=== PATIENT | male | born 1945 | race American Indian/Alaskan Native ===

== ENCOUNTER 2016-12-15 07:37 | Emergency (ER) | payer MEDICARE ==
[2016-12-15] MEDS ORDERED: KEPPRA 1,000 MG/NS 0.75% 100ML 100 ML IV ONE ×2 (07:46→07:51)
[2016-12-15] MEDS ORDERED: KEPPRA 1,000 MG in D5W 100 ML IV ONE (07:51)
--- NOTE | 2016-12-15 08:38 | Emergency Department Report ---
HPI - General Chief Complaint: Seizure Time Seen by Provider: 12/15/16 08:27 - HPI HPI: Room 19 The patient is a 71-year-old male presenting with a chief complaint of seizure. The patient's felt the patient after having a seizure. The patient is amnestic to the event. The patient states his last seizure before today was approximately 3-4 months ago. The patient admits she may not have been taking his Keppra "correctly." The patient states she may have missed a few doses. Patient currently denies pain. The patient states he feels a little sleepy but that is all. Patient denies headache Location: Central Nervous system Duration: see above Quality: Generalized tonic-clonic Severity:. Moderate Modifying factors: see above Context: see above Mode of transportation: not driving ED Past Medical Hx - Past Medical History Previous Medical History?: Yes Hx Hypertension: Yes (2006) Hx CVA: Yes (slight left sided weakness) Hx Arthritis: Yes (in L knee) Hx Seizures: Yes Additional medical history: [place]. High cholesterol - Surgical History Past Surgical History?: Yes Additional Surgical History: Hernia repair - Family History Family history: no significant - Social History Smoking Status: Never Smoker Substance Use Type: None - Medications Home Medications: Home Medications Medication Instructions Recorded Confirmed Last Taken Type Carvedilol [Coreg] 12.5 mg PO BIDAC 07/18/16 12/15/16 07/23/16 History NIFEdipine [Nifedipine ER] 60 mg PO DAILY 07/18/16 12/15/16 07/23/16 History Simvastatin [Zocor TAB] 20 mg PO QHS 07/18/16 12/15/16 07/23/16 History cloNIDine [Catapres] 0.1 mg PO BID 07/18/16 12/15/16 07/23/16 History hydrALAZINE [Apresoline TAB] 100 mg PO TID 07/18/16 12/15/16 07/23/16 History Dabigatran [Pradaxa] 150 mg PO BID 07/24/16 12/15/16 07/23/16 History levETIRAcetam [Keppra TAB] 500 mg PO BID #60 tablet 12/15/16 Unknown Rx ED Review of Systems ROS: Stated complaint: SEIZURE Other details as noted in HPI Comment: All other systems reviewed and negative Constitutional: denies: chills, fever Eyes: denies: eye pain, eye discharge, vision change ENT: denies: ear pain, throat pain Respiratory: denies: cough, shortness of breath, wheezing Cardiovascular: denies: chest pain, palpitations Endocrine: no symptoms reported Gastrointestinal: denies: abdominal pain, nausea, diarrhea Genitourinary: denies: urgency, dysuria Musculoskeletal: denies: back pain, joint swelling, arthralgia Skin: denies: rash, lesions Neurological: other (seizure) Psychiatric: denies: anxiety, depression Hematological/Lymphatic: denies: easy bleeding, easy bruising Physical Exam - Physical Exam Vital Signs: Vital Signs 12/15/16 12/15/16 12/15/16 07:39 07:40 07:41 Temperature 98.1 F Pulse Rate 104 H 109 H 106 H Respiratory 20 21 14 Rate Blood Pressure 167/117 O2 Sat by Pulse 86 91 98 Oximetry 12/15/16 12/15/16 12/15/16 07:42 07:44 07:45 Temperature Pulse Rate 104 H 111 H 104 H Respiratory 21 16 19 Rate Blood Pressure 167/117 167/117 157/127 O2 Sat by Pulse 99 95 99 Oximetry 12/15/16 12/15/16 12/15/16 07:46 07:48 07:50 Temperature Pulse Rate 108 H 103 H 102 H Respiratory 19 16 23 Rate Blood Pressure 157/127 157/127 157/127 O2 Sat by Pulse 99 98 97 Oximetry 12/15/16 12/15/16 12/15/16 07:52 07:54 08:00 Temperature Pulse Rate 100 H 99 H 94 H Respiratory 20 22 19 Rate Blood Pressure 157/127 157/127 179/116 O2 Sat by Pulse 97 97 97 Oximetry Physical Exam: GENERAL: The patient is well-developed well-nourished male lying on stretcher not appearing to be in acute distress. [] HEENT: Normocephalic. Atraumatic. Extraocular motions are intact. Patient has moist mucous membranes. NECK: Supple. Trachea Midline CHEST/LUNGS: Clear to auscultation. There is no respiratory distress noted. HEART/CARDIOVASCULAR: Regular. There is no tachycardia. There is no gallop rub or murmur. ABDOMEN: Abdomen is soft, nontender. Patient has normal bowel sounds. There is no abdominal distention. SKIN: There is no rash. There is no edema. There is no diaphoresis. NEURO: The patient is awake, alert, and oriented. The patient is cooperative. Cranial nerves II through XII grossly intact with exception of left facial droop from previous CVA. The patient has normal speech MUSCULOSKELETAL: There is no evidence of acute injury. ED Course Vital Signs 12/15/16 12/15/16 12/15/16 07:39 07:40 07:41 Temperature 98.1 F Pulse Rate 104 H 109 H 106 H Respiratory 20 21 14 Rate Blood Pressure 167/117 O2 Sat by Pulse 86 91 98 Oximetry 12/15/16 12/15/16 12/15/16 07:42 07:44 07:45 Temperature Pulse Rate 104 H 111 H 104 H Respiratory 21 16 19 Rate Blood Pressure 167/117 167/117 157/127 O2 Sat by Pulse 99 95 99 Oximetry 12/15/16 12/15/16 12/15/16 07:46 07:48 07:50 Temperature Pulse Rate 108 H 103 H 102 H Respiratory 19 16 23 Rate Blood Pressure 157/127 157/127 157/127 O2 Sat by Pulse 99 98 97 Oximetry 12/15/16 12/15/16 12/15/16 07:52 07:54 08:00 Temperature Pulse Rate 100 H 99 H 94 H Respiratory 20 22 19 Rate Blood Pressure 157/127 157/127 179/116 O2 Sat by Pulse 97 97 97 Oximetry ED Medical Decision Making - Differential Diagnosis seizure Critical care attestation.: If time is entered above; I have spent that time in minutes in the direct care of this critically ill patient, excluding procedure time. ED Disposition Clinical Impression: Seizure Disposition: DISCHARGED TO HOME OR SELFCARE Is pt being admited?: No Does the pt Need Aspirin: No Condition: Stable Instructions: Recurrent Seizures Adult (ED) Additional Instructions: Return to the emergency department immediately should you develop worsening symptoms, fever, inability to tolerate food or liquid or any other concerns. Prescriptions: levETIRAcetam [Keppra TAB] 500 mg PO BID #60 tablet Referrals: PRIMARY CARE, [Primary Care Provider] - 3-5 Days MICHAELA BLUE MD [Staff Physician] - 3-5 Days (Dr Blue is a neurologist. Please follow up with him for further evaluation) Time of Disposition: 08:40
[2016-12-15 09:41] VITALS: BP 166/114
== END 2016-12-15 09:40 | disposition home or self-care (01) ==
LOC: ED 07:37
DX: R56.9 Unspecified convulsions (principal); I10 Essential (primary) hypertension; E78.00 Pure hypercholesterolemia, unspecified; G51.0 Bell's palsy
CPT/HCPCS: 96374; 99283; J1953